=== PATIENT | female | born 1955 | race Caucasian/White ===

== ENCOUNTER 2017-10-25 09:58 | Emergency (ER) | payer MEDICARE ==
[2017-10-25 10:20] VITALS: BP 124/70
--- NOTE | 2017-10-25 10:42 | UC ---
Skin Complaint HPI - HPI Summary HPI Summary: dime size honey crutch colored lesion about left side of upper began as a pimple on Wednesday she opened the pimple and got purulent drainage now has honey scabbed area with erythematraveling to jaw - History of Current Complaint Chief Complaint: UCSkin Time Seen by Provider: 10/25/17 10:33 Stated Complaint: SKIN COMPLAINT Hx Obtained From: Patient ?: No Onset/Duration: Gradual Onset, Lasting Days - 2, Worse Since - past 24 hours Skin Exposure Onset/Duration: Days Ago - 3 Timing: Constant Onset Severity: Mild Current Severity: Moderate Pain Intensity: 5 Pain Scale Used: 0-10 Numeric Location: Discrete - left side of upper lip with erythema traelling towards jaw Character: Swelling, Redness Aggravating Factor(s): Nothing Alleviating Factor(s): Nothing Associated Signs & Symptoms: Positive: Negative - Allergy/Home Medications Allergies/Adverse Reactions: Allergies Allergy/AdvReac Type Severity Reaction Status Date / Time Penicillins [PCN] Allergy Severe HIVES, Verified 10/25/17 10:10 BREATHING DIFFICULTY Acetaminophen [From Tylenol] Allergy Intermediate Hives Verified 10/25/17 10:10 Home Medications: Home Medications Cetirizine* [ZyrTEC 10 MG TAB*] 10 mg PO DAILY 10/25/17 [History Confirmed 10/25] Losartan TAB* [Cozaar TAB*] 50 mg PO DAILY 10/25/17 [History Confirmed 10/25/17] Omeprazole CAP* [Prilosec CAP* 20 MG] 20 PRN 10/25/17 [History] Simvastatin [Flolipid] 20 10/25/17 [History] Varenicline Tartrate [Chantix Starting M... 0.5 mg X 11 & 1 mg X 42] 0.5 [History] Review of Systems Constitutional: Negative Skin: Negative, Other - scabbed open area with erythema Eyes: Negative ENT: Negative Respiratory: Negative Cardiovascular: Negative Gastrointestinal: Negative Genitourinary: Negative Motor: Negative Neurovascular: Negative Musculoskeletal: Negative Neurological: Negative Psychological: Negative Is Patient Immunocompromised?: No All Other Systems Reviewed And Are Negative: Yes PMH/Surg Hx/FS Hx/Imm Hx Previously Healthy: Yes Endocrine History: Dyslipidemia Cardiovascular History: Hypertension GI/ History: Gastroesophageal Reflux - Surgical History Surgical History: Yes Surgery Procedure, Year, and Place: Left Breast age 21's-[place] - Family History Known Family History: Positive: None - Social History Occupation: Disabled Lives: With Family Alcohol Use: Occasionally Substance Use Type: None Smoking Status (MU): Former Smoker - Immunization History Most Recent Influenza Vaccination: NOT CURRENT Physical Exam Triage Information Reviewed: Yes Appearance: Well-Appearing, No Pain Distress, Well-Nourished Vital Signs: Initial Vital Signs Temp 98.4 F 10/25/17 10:02 Pulse 87 10/25/17 10:02 Resp 18 10/25/17 10:02 BP 124/70 10/25/17 10:02 Pulse Ox 100 10/25/17 10:02 Vital Signs Reviewed: Yes Eye Exam: Normal Eyes: Positive: Conjunctiva Clear ENT Exam: Normal ENT: Positive: Normal ENT inspection, Hearing grossly normal, Pharynx normal, TMs normal, Other - left side of upper lip swollen. Negative: Nasal congestion , Nasal drainage, TM bulging, TM dull, TM red, Tonsillar swelling, Tonsillar exudate, Trismus, Muffled voice, Hoarse voice, Dental tenderness, Sinus tenderness, Uvula midline Dental Exam: Normal Neck exam: Normal Neck: Positive: Supple, Nontender, No Lymphadenopathy Respiratory Exam: Normal Respiratory: Positive: Chest non-tender, Lungs clear, Normal breath sounds, No respiratory distress, No accessory muscle use Cardiovascular Exam: Normal Cardiovascular: Positive: RRR, Brisk Capillary Refill Musculoskeletal Exam: Normal Musculoskeletal: Positive: Strength Intact, ROM Intact, No Edema Neurological Exam: Normal Neurological: Positive: Alert, Muscle Tone Normal Psychological Exam: Normal Psychological: Positive: Normal Response To Family, Age Appropriate Behavior Skin Exam: Normal Skin: Positive: rashes Course/Dx - Course Course Of Treatment: warm compress, bactrim, bactroban , follow with pcp - Diagnoses Provider Diagnoses: Staph infection left side of mouth Discharge - Discharge Plan Condition: Stable Disposition: HOME Prescriptions: Mupirocin 2% CREAM* [Bactroban 2% CREAM*] 1 applic TOPICAL TID #1 tube Sulfamethox/Trimethoprim DS* [Bactrim DS 800/160 TAB*] 1 tab PO BID #20 tab Patient Education Materials: Impetigo (ED), Cellulitis (ED), Warm Compress or Soak (ED) Referrals: Lay Kong MD [Primary Care Provider] - If Needed
== END 2017-10-25 10:51 | disposition home or self-care (01) ==
LOC: UCCORT 09:58
DX: K13.0 Diseases of lips (principal); B95.8 Unspecified staphylococcus as the cause of diseases classified elsewhere; E78.5 Hyperlipidemia, unspecified; I10 Essential (primary) hypertension; K21.9 Gastro-esophageal reflux disease without esophagitis; Z88.6 Allergy status to analgesic agent; Z88.0 Allergy status to penicillin; Z87.891 Personal history of nicotine dependence
CPT/HCPCS: 99212; G0463

== ENCOUNTER 2018-08-30 11:25 | Emergency (ER) | payer MEDICARE ==
[2018-08-30 11:47] VITALS: BP 130/80
--- NOTE | 2018-08-30 12:04 | UC ---
Complaint Female HPI - HPI Summary HPI Summary: dysuria x 4 days, + urinary frequency , urgency , no fever, no chills, no discharge pt. has a new sexual partner - History Of Current Complaint Chief Complaint: UCGU Stated Complaint: URINARY Time Seen by Provider: 08/30/18 11:48 Hx Obtained From: Patient Onset/Duration: Gradual Onset, Lasting Days - 4, Still Present Timing: Constant Severity Initially: Moderate Severity Currently: Moderate Pain Intensity: 4 Character: Burning Aggravating Factor(s): Urination Alleviating Factor(s): Nothing Associated Signs And Symptoms: Negative: Fever, Back Pain, Vaginal Bleeding/ Discharge, Vaginal Discharge, Nausea, Vomiting(# Of Episodes =), Genital Swelling, Genital Blisters, Retained Foregin Body (Specify) Related Hx: Similar Episode/Dx as: - UTI - Allergies/Home Medications Allergies/Adverse Reactions: Allergies Allergy/AdvReac Type Severity Reaction Status Date / Time acetaminophen Allergy Hives Verified 08/30/18 12:08 Penicillins Allergy Hives/Diff. Verified 08/30/18 12:08 Breathing/I tching other antibiotic Allergy Pain Uncoded 08/30/18 12:09 Home Medications: Home Medications Cranberry Fruit Extract [Cranberry Concentrate] 500 mg PO TID PRN 08/30/18 [ History Confirmed 08/30/18] Ibuprofen TAB* [Motrin TAB* 400 MG] 400 mg PO ONCE PRN 08/30/18 [History Confirmed 08/30/18] Meloxicam 7.5 mg PO Q24HR PRN 08/30/18 [History Confirmed 08/30/18] PMH/Surg Hx/FS Hx/Imm Hx - Additional Past Medical History Additional PMH: HIGH CHOLESTEROL, ESSENTIAL TREMOR, CHRONIC HIVES; back and hip injury Cardiovascular History: Hypertension - Surgical History Surgical History: Yes Surgery Procedure, Year, and Place: Left Breast age 21's-[place] - Family History Known Family History: Positive: None, Hypertension - Social History Alcohol Use: Rare Substance Use Type: None Smoking Status (MU): Former Smoker - Immunization History Most Recent Influenza Vaccination: NOT CURRENT Review of Systems Constitutional: Negative Skin: Negative Eyes: Negative ENT: Negative Respiratory: Negative Cardiovascular: Negative Gastrointestinal: Negative Genitourinary: Dysuria, Frequency, Urgency Is Patient Immunocompromised?: No All Other Systems Reviewed And Are Negative: Yes Physical Exam Triage Information Reviewed: Yes Completion Of Physical Exam Limited Due To: Extremis Appearance: Well-Appearing, No Pain Distress, Well-Nourished Vital Signs: Initial Vital Signs Temp 98.7 F 08/30/18 11:41 Pulse 92 08/30/18 11:41 Resp 20 08/30/18 11:41 BP 130/80 08/30/18 11:41 Pulse Ox 98 08/30/18 11:41 Vital Signs Reviewed: Yes Eyes: Positive: Conjunctiva Clear ENT: Positive: Normal ENT inspection, Hearing grossly normal, Pharynx normal Neck exam: Normal Neck: Positive: Supple, Nontender, No Lymphadenopathy Respiratory: Positive: Chest non-tender, Lungs clear, Normal breath sounds Cardiovascular: Positive: RRR, No Murmur, Pulses Normal Abdominal Exam: Normal Abdomen Description: Positive: Nontender, Soft. Negative: CVA Tenderness (R), CVA Tenderness (L), Distended, Guarding Bowel Sounds: Positive: Present Psychological Exam: Normal Complaint Female Dx - Differential Dx/Diagnosis Provider Diagnoses: UTI Discharge - Sign-Out/Discharge Documenting (check all that apply): Patient Departure All imaging exams completed and their final reports reviewed: No Studies - Discharge Plan Condition: Stable Disposition: HOME Prescriptions: Sulfamethox/Trimethoprim DS* [Bactrim DS 800/160 TAB*] 1 tab PO BID #14 tab Patient Education Materials: Urinary Tract Infection in Women (ED) Referrals: Lay Kong MD [Primary Care Provider] - 7 Days - Billing Disposition and Condition Condition: STABLE Disposition: Home
== END 2018-08-30 12:13 | disposition home or self-care (01) ==
LOC: UCCORT 11:25
DX: Z88.6 Allergy status to analgesic agent (principal); I10 Essential (primary) hypertension; Z87.891 Personal history of nicotine dependence; N39.0 Urinary tract infection, site not specified; B95.7 Other staphylococcus as the cause of diseases classified elsewhere; Z88.0 Allergy status to penicillin; Z88.1 Allergy status to other antibiotic agents
CPT/HCPCS: 81003; 87077; 87086; 99212; G0463

== ENCOUNTER 2018-11-04 10:22 | Emergency (ER) | payer MEDICARE ==
[2018-11-04 10:56] VITALS: BP 119/67
--- NOTE | 2018-11-04 11:12 | UC ---
Complaint Female HPI - HPI Summary HPI Summary: Pt c/o sudden onset of urinary frequency, urgency and dysuria X 1-2 days. - History Of Current Complaint Chief Complaint: UCGU Stated Complaint: URINARY Time Seen by Provider: 11/04/18 11:02 Hx Obtained From: Patient ?: No Onset/Duration: Sudden Onset, Lasting Days, Still Present Timing: Constant Severity Initially: Mild Severity Currently: Mild Pain Intensity: 4 Pain Scale Used: 0-10 Numeric Character: Burning Aggravating Factor(s): Urination Alleviating Factor(s): Nothing Associated Signs And Symptoms: Positive: Negative Related Hx: Similar Episode/Dx as: - UTI - Risk Factors Ectopic Risk Factor: Negative Ovarian Torsion Risk Factor: Negative - Allergies/Home Medications Allergies/Adverse Reactions: Allergies Allergy/AdvReac Type Severity Reaction Status Date / Time acetaminophen Allergy Hives Verified 11/04/18 10:57 Penicillins Allergy Hives/Diff. Verified 11/04/18 10:57 Breathing/I tching other antibiotic Allergy Pain Uncoded 11/04/18 10:57 PMH/Surg Hx/FS Hx/Imm Hx Previously Healthy: Yes - Surgical History Surgical History: Yes [facility] - Family History Known Family History: Positive: Hypertension - Social History Occupation: Retired Lives: Alone Alcohol Use: Rare Substance Use Type: None Smoking Status (MU): Former Smoker Have You Smoked in the Last Year: No - Immunization History Most Recent Influenza Vaccination: NOT CURRENT Review of Systems All Other Systems Reviewed And Are Negative: Yes Constitutional: Positive: Negative Skin: Positive: Negative Eyes: Positive: Negative ENT: Positive: Negative Respiratory: Positive: Negative Cardiovascular: Positive: Negative Gastrointestinal: Positive: Negative Genitourinary: Positive: Dysuria, Frequency, Urgency Motor: Positive: Negative Neurovascular: Positive: Negative Musculoskeletal: Positive: Negative Neurological: Positive: Negative Psychological: Positive: Negative Is Patient Immunocompromised?: No Physical Exam Triage Information Reviewed: Yes Appearance: Well-Appearing Vital Signs: Initial Vital Signs Temp 97.6 F 11/04/18 10:53 Pulse 93 11/04/18 10:53 Resp 16 11/04/18 10:53 BP 119/67 11/04/18 10:53 Pulse Ox 98 11/04/18 10:53 Vital Signs Reviewed: Yes Eye Exam: Normal ENT Exam: Normal Dental Exam: Normal Neck exam: Normal Respiratory: Positive: No respiratory distress Abdomen Description: Positive: Nontender Musculoskeletal Exam: Normal Neurological Exam: Normal Psychological Exam: Normal Skin Exam: Normal Complaint Female Dx - Differential Dx/Diagnosis Differential Diagnosis/HQI/PQRI: Urinary Tract Infection Provider Diagnosis: UTI (urinary tract infection) Discharge - Sign-Out/Discharge Documenting (check all that apply): Patient Departure All imaging exams completed and their final reports reviewed: No Studies - Discharge Plan Condition: Stable Disposition: HOME Prescriptions: Sulfamethox/Trimethoprim DS* [Bactrim DS 800/160 TAB*] 1 tab PO Q12H #14 tab Patient Education Materials: Urinary Tract Infection in Women (ED) Referrals: Alfreda Fortune MD [Primary Care Provider] - 4 Days - Billing Disposition and Condition Condition: STABLE Disposition: Home
--- NOTE | 2018-11-06 07:13 | UC ---
- Progress Note Progress Note: Final urine culture report: No growth. RN to call the patient to discuss the lab results and advised to stop the antibiotics. If she has continued symptoms she should follow up with primary care doctor or return to urgent care. Course/Dx - Diagnoses Provider Diagnoses: UTI (urinary tract infection) Discharge - Sign-Out/Discharge Documenting (check all that apply): Post-Discharge Follow Up All imaging exams completed and their final reports reviewed: No Studies - Discharge Plan Condition: Stable Disposition: HOME Prescriptions: Sulfamethox/Trimethoprim DS* [Bactrim DS 800/160 TAB*] 1 tab PO Q12H #14 tab Patient Education Materials: Urinary Tract Infection in Women (ED) Referrals: Alfreda Fortune MD [Primary Care Provider] - 4 Days - Billing Disposition and Condition Condition: STABLE Disposition: Home
== END 2018-11-04 11:18 | disposition home or self-care (01) ==
LOC: UCCORT 10:22
DX: N39.0 Urinary tract infection, site not specified (principal); Z88.0 Allergy status to penicillin; Z88.6 Allergy status to analgesic agent; Z88.1 Allergy status to other antibiotic agents; Z87.891 Personal history of nicotine dependence
CPT/HCPCS: 81003; 87086; 99212; G0463

== ENCOUNTER 2018-11-18 08:15 | Emergency (ER) | payer MEDICARE ==
[2018-11-18 08:35] VITALS: BP 112/68
--- NOTE | 2018-11-18 08:58 | UC ---
Respiratory Complaint HPI - HPI Summary HPI Summary: cough x 7 days cough is productive , yellow sputum nasal congestion, pnd, sore throat, no fever, + chills, wheezing , sob - History of Current Complaint Chief Complaint: UCRespiratory Stated Complaint: HEADACHE CONGESTION COUGH Time Seen by Provider: 11/18/18 08:34 Hx Obtained From: Patient Onset/Duration: Gradual Onset, Lasting Days - 7, Still Present Timing: Constant Severity Initially: Moderate Severity Currently: Moderate Pain Intensity: 3 Character: Cough: Productive Aggravating Factors: Exertion, Deep Breaths Alleviating Factors: Nothing Associated Signs And Symptoms: Positive: Dyspnea, Fever, Chills, Pleuritic Chest Pain, Wheezing, URI, Nasal Congestion. Negative: Hemoptysis, Dizziness, Calf Pain, Calf Swelling - Allergies/Home Medications Allergies/Adverse Reactions: Allergies Allergy/AdvReac Type Severity Reaction Status Date / Time acetaminophen Allergy Hives Verified 11/18/18 08:31 Penicillins Allergy Hives/Diff. Verified 11/18/18 08:31 Breathing/I tching amoxicillin AdvReac Vomiting Verified 11/18/18 08:31 other antibiotic Allergy Pain Uncoded 11/18/18 08:31 Home Medications: Home Medications Meloxicam(NF) [Mobic(NF)] 7.5 mg PO DAILY PRN 11/18/18 [History Confirmed ] PMH/Surg Hx/FS Hx/Imm Hx - Additional Past Medical History Additional PMH: Chronic Urticaria, Essential Tremor Cardiovascular History: Hypertension - Surgical History Surgical History: Yes Surgery Procedure, Year, and Place: Left Breast age 21's-[place] - Family History Known Family History: Positive: None, Hypertension - Social History Alcohol Use: Rare Substance Use Type: None Smoking Status (MU): Former Smoker Length of Time of Smoking/Using Tobacco: On and Off "My whole left" Have You Smoked in the Last Year: No When Did the Patient Quit Smoking/Using Tobacco: 07/2018 - Immunization History Most Recent Influenza Vaccination: NOT CURRENT Review of Systems All Other Systems Reviewed And Are Negative: Yes Constitutional: Positive: Fever, Chills, Fatigue Skin: Positive: Negative Eyes: Positive: Negative ENT: Positive: Sore Throat, Nasal Discharge Respiratory: Positive: Shortness Of Breath, Cough Cardiovascular: Positive: Negative Is Patient Immunocompromised?: No Physical Exam Triage Information Reviewed: Yes Appearance: Well-Appearing, No Pain Distress, Well-Nourished Vital Signs: Initial Vital Signs Temp 99.8 F 11/18/18 08:28 Pulse 93 11/18/18 08:28 Resp 20 11/18/18 08:28 BP 112/68 11/18/18 08:28 Pulse Ox 97 11/18/18 08:28 Vital Signs Reviewed: Yes Eye Exam: Normal Eyes: Positive: Conjunctiva Clear ENT: Positive: Normal ENT inspection, Hearing grossly normal, Pharynx normal, Nasal congestion Neck exam: Normal Neck: Positive: Supple, Nontender, No Lymphadenopathy Respiratory: Positive: Chest non-tender, Crackles, Wheezing Cardiovascular: Positive: RRR, No Murmur, Pulses Normal Skin Exam: Normal UC Diagnostic Evaluation - Laboratory O2 Sat by Pulse Oximetry: 97 Respiratory Course/Dx - Differential Dx/Diagnosis Provider Diagnosis: Bronchitis Discharge - Sign-Out/Discharge Documenting (check all that apply): Patient Departure All imaging exams completed and their final reports reviewed: No Studies - Discharge Plan Condition: Stable Disposition: HOME Prescriptions: Azithromycin TAB* [Zithromax TAB (Z-GAIL) 250 mg #6 tabs] 2 tab PO .TODAY, THEN 1 DAILY #1 gail Benzonatate CAP* [Tessalon 100 MG CAP*] 100 mg PO TID #15 cap Patient Education Materials: Acute Bronchitis (ED) Referrals: Alfreda Fortune MD [Primary Care Provider] - 7 Days - Billing Disposition and Condition Condition: STABLE Disposition: Home
== END 2018-11-18 08:58 | disposition home or self-care (01) ==
LOC: UCCORT 08:15
DX: J40 Bronchitis, not specified as acute or chronic (principal); Z88.0 Allergy status to penicillin; Z88.1 Allergy status to other antibiotic agents; Z88.6 Allergy status to analgesic agent; Z87.891 Personal history of nicotine dependence
CPT/HCPCS: 99212; G0463

== ENCOUNTER 2019-05-27 09:38 | Emergency (ER) | payer MEDICARE ==
[2019-05-27 10:09] VITALS: BP 132/55
--- NOTE | 2019-05-27 10:21 | UC ---
UC General HPI - HPI Summary HPI Summary: rash on R side x 1 week. + itching. states has had a recurrent rash in that area about 1-2 times each year for about 10 years; however, it has never looked like a ring and never this large. No fever. chronic hip and low back pain but no other joint pains. pt reports having some stress and mild nausea. her pcp has seen the rash in her past. no known tick bites. - History of Current Complaint Chief Complaint: UCSkin Stated Complaint: SKIN COMPLAINT Time Seen by Provider: 05/27/19 10:12 Hx Obtained From: Patient Onset/Duration: Gradual Onset Timing: Constant Pain Intensity: 0 - Allergy/Home Medications Allergies/Adverse Reactions: Allergies Allergy/AdvReac Type Severity Reaction Status Date / Time acetaminophen Allergy Hives Verified 05/27/19 10:01 Penicillins Allergy Hives/Diff. Verified 05/27/19 10:01 Breathing/I tching amoxicillin AdvReac Vomiting Verified 05/27/19 10:01 other antibiotic Allergy Pain Uncoded 05/27/19 10:01 Home Medications: Home Medications Neomycin/Bacitracin/Polymyxinb [Antibiotic Ointment] 28 gm TP ONCE PRN 05/27/19 [History Confirmed 05/27/19] PMH/Surg Hx/FS Hx/Imm Hx - Additional Past Medical History Additional PMH: chronic hip and low back pain. GI/ History: Gastroesophageal Reflux - Surgical History Surgical History: Yes Surgery Procedure, Year, and Place: Left Breast age 21's-[place] - Family History Known Family History: Positive: None, Hypertension - Social History Alcohol Use: Rare Substance Use Type: None Smoking Status (MU): Former Smoker Length of Time of Smoking/Using Tobacco: On and Off "My whole left" Have You Smoked in the Last Year: No When Did the Patient Quit Smoking/Using Tobacco: 07/2018 - Immunization History Most Recent Influenza Vaccination: NOT CURRENT Review of Systems All Other Systems Reviewed And Are Negative: Yes Constitutional: Negative: Fever, Chills Skin: Positive: Rash Gastrointestinal: Positive: Nausea. Negative: Abdominal Pain, Vomiting, Diarrhea Musculoskeletal: Positive: Arthralgia - back/hip=chronic Physical Exam Triage Information Reviewed: Yes Appearance: Well-Appearing Vital Signs: Initial Vital Signs Temp 97.9 F 05/27/19 10:03 Pulse 75 05/27/19 10:03 Resp 18 05/27/19 10:03 BP 132/55 05/27/19 10:03 Pulse Ox 100 05/27/19 10:03 Vital Signs Reviewed: Yes Eyes: Positive: Conjunctiva Clear Neck: Positive: Supple Respiratory: Positive: No respiratory distress Cardiovascular: Positive: RRR Abdomen Description: Positive: Nontender Musculoskeletal: Positive: ROM Intact Neurological: Positive: Alert Psychological: Positive: Age Appropriate Behavior Skin Exam: Normal Skin: Positive: Rashes - 7" circular rash R anterior chest below her breast. Rim is pink with a fine textured surface plus central clearing. The rim is excoriated. No burrows and not petechial. No other rashes. Course/Dx - Differential Dx - Multi-Symptom Differential Diagnoses: Other - no concern for cellulitis or infestation. possible lyme vs fungal infections. given itchy and textured surface, will start topical antifungal cream and check a lyme titier. - Diagnoses Provider Diagnosis: Rash Discharge - Sign-Out/Discharge Documenting (check all that apply): Patient Departure All imaging exams completed and their final reports reviewed: No Studies - Discharge Plan Condition: Stable Disposition: HOME Prescriptions: Ketoconazole 2 % CREAM (NF) [Nizoral 2% CREAM (NF)] 1 applic TOPICAL BID 30 Days #1 tube Patient Education Materials: Lyme Disease (ED), Tinea Corporis (ED) Referrals: Alfreda Fortune MD [Primary Care Provider] - 7 Days - Billing Disposition and Condition Condition: STABLE Disposition: Home
== END 2019-05-27 10:43 | disposition home or self-care (01) ==
LOC: UCCORT 09:38
DX: R21 Rash and other nonspecific skin eruption (principal); Z88.0 Allergy status to penicillin; Z88.1 Allergy status to other antibiotic agents; Z87.891 Personal history of nicotine dependence
CPT/HCPCS: 36415; 86618; 99212; G0463